=== PATIENT | male | born 1980 | race American Indian/Alaskan Native ===

== ENCOUNTER 2017-09-10 15:19 | Emergency (ER) | payer OTHER ==
[2017-09-10 15:27] VITALS: BP 107/72; PULSE 60; RESP 18; TEMP 98.9; O2SAT 100
[2017-09-10] MEDS ORDERED: Lidocaine Hydrochloride 5 ML INJ ONE (15:40)
--- NOTE | 2017-09-10 16:01 | C.PDOC ---
History Of Present Illness 37 y/o male presents to ED with c/o right 4th finger pain. 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 Time Seen by Provider: 09/10/17 15:33 Chief Complaint (Nursing): Finger,Hand,&Wrist History Per: Patient History/Exam Limitations: no limitations Onset/Duration Of Symptoms: Days Current Symptoms Are (Timing): Still Present Quality: "Pain" Past Medical History Reviewed: Historical Data, Nursing Documentation, Vital Signs Vital Signs: Last Vital Signs Temp 98.9 F 09/10/17 15:25 Pulse 60 09/10/17 15:25 Resp 18 09/10/17 15:25 BP 107/72 09/10/17 15:25 Pulse Ox 100 09/10/17 16:01 - Medical History PMH: No Chronic Diseases Surgical History: No Surg Hx Family History: States: No Known Family Hx - Social History Hx Alcohol Use: Yes Hx Substance Use: No - Immunization History Hx Tetanus Toxoid Vaccination: No Hx Influenza Vaccination: No Hx Pneumococcal Vaccination: No Review Of Systems Cardiovascular: Negative for: Chest Pain Musculoskeletal: Positive for: Hand Pain Skin: Negative for: Rash Neurological: Negative for: Weakness, Numbness Physical Exam - Physical Exam Appears: Non-toxic, No Acute Distress Skin: Warm, Dry, Other (Pranychea to right 4th lateral fingernail) Head: Atraumatic, Normacephalic Oral Mucosa: Moist Extremity: Normal ROM, Capillary Refill (<2 seconds), No Deformity Pulses: Right Radial: Normal Neurological/Psych: Oriented x3, Normal Motor, Normal Sensation ED Course And Treatment O2 Sat by Pulse Oximetry: 100 (RA) Pulse Ox Interpretation: Normal Procedure: Blank - Performed by: Performed by:: Attending physician - Topical: Local/Regional Anesthetic:: Lidocaine 1% - Location Location: Right, Lateral Finger:: Ring - Result Result: Successful - Patient Tolerated Procedure Patient Tolerated Procedure:: Well Medical Decision Making Medical Decision Making: L 4th medial fingernail paronychia, now released Disposition Doctor Will See Patient In The: Office Counseled Patient/Family Regarding: Studies Performed, Diagnosis - Disposition Referrals: [facility] [Outside] [facility] [Outside] [facility] [Outside] Disposition: HOME/ ROUTINE Disposition Time: 16:01 Condition: GOOD Additional Instructions: warm salty water soaks tonight motrin for pain avoid fingernail maincures- high risk for this Instructions: Paronychia Forms: [facility] (Hebrew) - Clinical Impression Clinical Impression: Paronychia - Scribe Statement The provider has reviewed the documentation as recorded by the Scribe Maggie Chaudhary All medical record entries made by the Michelleibe were at my direction and personally dictated by me. I have reviewed the chart and agree that the record accurately reflects my personal performance of the history, physical exam, medical decision making, and the department course for this patient. I have also personally directed, reviewed, and agree with the discharge instructions and disposition.
[2017-09-10] MEDS ORDERED: Bacitracin 500 Units/gm Oint Foilpak UD ONE (16:08)
== END 2017-09-10 16:39 | disposition home or self-care (01) ==
LOC: C.ER 15:19
DX: L03.012 Cellulitis of left finger (principal)